=== PATIENT | female | born 2000 | race Caucasian/White ===

== ENCOUNTER 2020-03-09 05:23 | Emergency (ER) | payer OTHER ==
[~2020-03-09] VITALS: Ht 162.5 cm; Wt 57.1 kg
[2020-03-09] MEDS ORDERED: FLUORESCEIN (FLUOR-I-STRIPS) 1 MG STRP OU ONE (06:30)
[2020-03-09] MEDS ORDERED: TETRACAINE 0.5% OPHTH SOLN 4 ML BTL (SINGLE DOSE ONLY) OU ONE (06:30)
[2020-03-09] MEDS ORDERED: BSS 15 ML IR ONE (06:30)
--- NOTE | 2020-03-09 06:52 | ED EENT ---
History of Present Illness General Chief Complaint: Eye Problems Stated Complaint: LEFT EYE PAIN,EYE ARE UNEQUALLY DIALATED Nursing Triage Note: C/O LEFT EYE PAIN WITH LIGHT SENSITIVITY STARTED ON 02/29/20 AROUND 1800 HAS BEEN IRRITATED THE LAST FEW DAYS, VERBALIZES THE PUPIL IS BIGGER ON THE RIGHT . (SHAYY MERCER STUDENT) Source: patient Exam Limitations: no limitations (LOUIS MAIER MD) History of Present Illness Initial Comments This is a 19 year old female who presents to the Emergency Department via ambulation for a chief complaint of anisocoria and left eye pain that started 3 days ago but became worse last night. She has constant dull left eye pain, light sensitivity, eye irritation and blurry vision. She also has a runny nose and teary vision. She denies fever, chills, nausea, or vomiting. Changing from light to dark or opening her eyes from closed makes it worse. Keeping her eyes closed makes it better. She wears contacts and states it used to be better when they were out but not anymore. She has an eye appointment later today. Medication: control allergy to meds: none PMHx: none PSHx: excess gum tissue removed from mouth FamHx: none SocHx: no smoking, no alcohol, no drugs (SHAYY MERCER STUDENT) Date Seen by Provider: Mar 09, 2020 Time Seen by Provider: 06:10 (LOUIS MAIER MD) Allergies and Home Medications Allergies Coded Allergies: No Known Drug Allergies (Unverified , 03/09/20) Patient Home Medication List Home Medication List Reviewed: Yes (LOUIS MAIER MD) Review of Systems Review of Systems Constitutional: no symptoms reported; No dizziness, No fever Eyes: Blurred Vision, Pain, Photophobia; Denies Previous Injury, Denies Tunnel Vision; Vision Changes, Contact Lenses Ears: No Symptoms Reported; Denies Pain, Denies Tinnitus Nose: other (runny nose) Mouth: no symptoms reported Throat: no symptoms reported Respiratory: no symptoms reported; No cough Cardiovascular: no symptoms reported; No chest pain Gastrointestinal: no symptoms reported Musculoskeletal: no symptoms reported Skin: no symptoms reported Neurological: No Symptoms Reported Hematologic/Lymphatic: No Symptoms Reported Immunological/Allergic: no symptoms reported (SHAYY MERCER STUDENT) Past Ajslzvw-Nkobsi-Himgga Hx Patient Social History Alcohol Use: Denies Use Recent Infectious Disease Expo: No Recent Hopitalizations: No (SHAYY MERCER STUDENT) Immunizations Up To Date PED Vaccines UTD: Yes Date of Influenza Vaccine: Dec 09, 2019 (SHAYY MERCER STUDENT) Past Medical History Respiratory: No Cardiac: No Neurological: No Last Menstrual Period: Mar 08, 2020 Genitourinary: No Gastrointestinal: No Musculoskeletal: No Endocrine: No HEENT: No Cancer: No Psychosocial: No Integumentary: No Blood Disorders: No (SHAYY MERCER STUDENT) Visual Acuity : Eye Location: Left (SHAYY MERCER [employer] STUDENT) Physical Exam Vital Signs Vital Signs - First Documented 03/09/20 06:00 Temp 37.0 Pulse 94 Resp 16 B/P (MAP) 122/94 (103) Pulse Ox 98 (LOUIS MAIER MD) Height, Weight, BMI Height: '" Weight: lbs. oz. kg; 21.00 BMI Method: General Appearance: WD/WN, no apparent distress Eyes: left eye abnormal pupil (anisocoria), left eye conjunctival inflammation (red, irritated), left eye corneal abrasion (possible); bilateral eye EOMI, bilateral eye vision changes (blurry vision) Cardiovascular: regular rate, rhythm Respiratory: chest non-tender, lungs clear, normal breath sounds, no respiratory distress, no accessory muscle use Neurologic/Psychiatric: alert Skin: normal color, warm/dry (SHAYY MERCER STUDENT) Procedures/Interventions Eye : Location: left eye Anesthesia (gtts): Tetracaine Intraocular Pressure: (L) eye (MM), Per Tonopen Progress/Procedure Conclusion - The patient's left eye was anesthetized with tetracaine eye drops and fluorescein stain was then applied. This did not alleviate her pain. Upon visualization with the Wood's lamp, the patient did have uptake for a positive corneal abrasion. A small ulcer/defect was seen at 12 o'clock on the cornea. Upon further exam, there were no foreign bodies within the patient's left eye. There was conjunctival irritation. Intraocular pressure was 18 in the left eye. (SHAYY MERCER [employer] STUDENT) Progress/Results/Core Measures Results/Orders My Orders Orders - LOUIS MAIER MD Tetracaine 0.5% Ophth Stephanie Sdv (Tetracai (03/09/20 06:30) Fluorescein Strips (Tecfi-L-Ghrmha) (03/09/20 06:30) Balanced Salt Irrigation Soln (Bss Irrig (03/09/20 06:30) Trimethoprim/Polymyx Ophth Stephanie (Polytrim (03/09/20 07:00) (LOUIS MAIER MD) Medications Given in ED Current Medications Medications Dose Ordered Sig/Josi Route Start Time Stop Time Status Last Admin Dose Admin Balanced Salt Solution 15 ml ONCE ONCE IR 03/09/20 06:30 03/09/20 06:31 DC 03/09/20 06:34 15 ML Fluorescein Sodium 1 mg ONCE ONCE OU 03/09/20 06:30 03/09/20 06:31 DC 03/09/20 06:34 1 MG Tetracaine HCl 4 ml ONCE ONCE OU 03/09/20 06:30 03/09/20 06:31 DC 03/09/20 06:34 4 ML (LOUIS MAIER MD) Vital Signs/I&O 03/09/20 06:00 Temp 37.0 Pulse 94 Resp 16 B/P (MAP) 122/94 (103) Pulse Ox 98 (LOUIS MAIER MD) Blood Pressure Mean: 103 Departure Impression Primary Impression: Iritis Additional Impressions: Corneal ulceration Qualified Codes: H16.002 - Unspecified corneal ulcer, left eye Conjunctivitis Qualified Codes: H10.32 - Unspecified acute conjunctivitis, left eye Disposition: 01 HOME, SELF-CARE Condition: Improved Departure-Patient Inst. Decision time for Depature: 07:07 (LOUIS MAIER MD) Referrals: MARIELLE FLOREZ OD, SHANE R OD NO,LOCAL PHYSICIAN (PCP) Primary Care Physician Patient Instructions: Corneal Ulcer Add. Discharge Instructions: Present to [facility] at 8:[address] Felix or Dr. Howell will see you this morning. Until then do not wear your contacts. Bring your antibiotic drops with you and use according to their instructions. Protect your eyes with sunglasses. It would be best if you not attempt to drive yourself to the eye doctor. Tylenol and/or ibuprofen may be helpful in reducing pain. Call the clinic at the number below with any questions or concerns. If you have questions or concerns prior to the office opening, please call Dr. Maier in the ER. All discharge instructions reviewed with patient and/or family. Voiced understanding. Medical Student Attestation and Attending Note: I have personally interviewed and examined this patient along with Shayy Mercer, MS 3. I have reviewed student documentation including history, physical, and assessments. I agree with the documentation except where otherwise noted. Exam: General: Alert, oriented, mild distress, well developed HEENT: Normocephalic. Gross examination of the eye reveals conjunctival inflammation and slight anisocoria with a constricted left pupil. Fluorescein exam reveals a tiny ulceration or abrasion on the periphery of the cornea at about the 12 o'clock position. No foreign bodies were identified. Extraocular movements intact. Left rhinorrhea. Tympanic membranes normal. Lungs: normal effort Neuropsych: Alert, oriented, no focal deficits, extraocular movements intact, left vision intact about generally blurry. No visual field deficits. Skin: Warm and dry without rashes. Mild erythema and mild edema of the eyelids and periorbital region on the left Patient had iritis with rather significant light sensitivity. There was an ulceration suspected on the peripheral superior aspect of the cornea, likely related to contact lens use. Patient should have a dedicated eye exam by an automotive service professional. I discussed the situation with Dr. Florez who asked the patient to present at the [facility] clinic at 08:00. He recommended initial treatment with Polytrim drops. He requested cycloplegic medications not be administered until she is seen in the clinic. Discharge instructions were reviewed with the patient prior to discharge. (LOUIS MAIER MD) Copy Copies To 1: SOL FELIX OD, ELIZABETH X MED STUDENT Mar 09, 2020 06:52 LOUIS MAIER MD Mar 09, 2020 07:11
[2020-03-09] MEDS ORDERED: POLY/TRIMETH (POLYTRIM) OPHTH 10 ML BTL OU ONE (07:00)
[2020-03-09 07:15] VITALS: BP 122/94
== END 2020-03-09 07:15 | disposition home or self-care (01) ==
LOC: ER 05:33
DX: H20.9 Unspecified iridocyclitis (principal); H16.002 Unspecified corneal ulcer, left eye; H10.9 Unspecified conjunctivitis
CPT/HCPCS: 99282

== ENCOUNTER 2021-04-03 23:02 | Emergency (ER) | payer OTHER ==
--- NOTE | 2021-04-03 23:14 | ED Psychosocial ---
General Chief Complaint: Psych/Social Disorder Stated Complaint: ANXIETY ATTACK Source: patient Exam Limitations: no limitations History of Present Illness Date Seen by Provider: Apr 03, 2021 Time Seen by Provider: 23:00 Initial Comments Corrine is a 21-year-old female who was brought to the emergency department by ambulance this evening chief complaint panic attack. She was at a local bar watching the [employer] tonight with friends, drinking mixed drinks. They went to [facility] afterwards, she became very nauseated went into the bathroom and states that she could not stop throwing up. Patient continued to become more short of breath and panicky. She is not very forthcoming with other circumstances. She is very tearful. She is not making good eye contact. She denies pain. She states she still having nausea. Her last menstrual cycle was last week. She states she is not currently sexually active. No recent illnesses. No other complaints of injury. She has never had a panic attack before. All other review of systems reviewed and negative except as stated. Timing/Duration: just prior to arrival Severity: severe Associated Symptoms: anxiety Allergies and Home Medications Allergies Coded Allergies: No Known Drug Allergies (Unverified , 03/09/20) Patient Home Medication List Home Medication List Reviewed: Yes Review of Systems Constitutional: see HPI EENTM: no symptoms reported Respiratory: short of breath Cardiovascular: no symptoms reported Gastrointestinal: nausea, vomiting Genitourinary: no symptoms reported : No LMP: Mar 27, 2021 Musculoskeletal: no symptoms reported Skin: no symptoms reported Psychiatric/Neurological: Anxiety All Other Systems Reviewed Negative Unless Noted: Yes Past Zpilxqq-Ookomu-Wwklui Hx Immunizations Up To Date PED Vaccines UTD: Yes Past Medical History Respiratory: No Cardiac: No Neurological: No Genitourinary: No Gastrointestinal: No Musculoskeletal: No Endocrine: No HEENT: No Cancer: No Psychosocial: No Integumentary: No Blood Disorders: No Physical Exam Capillary Refill : Height, Weight, BMI Height: '" Weight: lbs. oz. kg; 21.00 BMI Method: General Appearance: WD/WN, moderate distress HEENT: PERRL/EOMI, other (Swollen red eyelids bilaterally, injected conjunctive a) Neck: normal inspection Respiratory: lungs clear, normal breath sounds, no respiratory distress, no accessory muscle use Cardiovascular: regular rate, rhythm (116) Gastrointestinal: normal bowel sounds, non tender, soft Extremities: normal range of motion, non-tender, normal inspection, no pedal edema Neurologic/Psychiatric: alert, oriented x 3, other (Anxious tearful, crying) Appearance/Memory: appropriate appearance, no memory impairment Behavior/Eye Contact: avoids eye contact Skin: normal color, warm/dry Progress/Results/Core Measures Results/Orders My Orders Orders - TAMIKA KEE MD Ns Iv 1000 Ml (Sodium Chloride 0.9%) (04/03/21 23:15) Ondansetron Injection (Zofran Injectio (04/03/21 23:15) Medications Given in ED Current Medications Medications Dose Ordered Sig/Josi Route Start Time Stop Time Status Last Admin Dose Admin Ondansetron HCl 8 mg ONCE ONCE IVP 04/03/21 23:15 04/03/21 23:16 DC 04/03/21: 8 MG Progress Progress Note : Time: 00:27 Progress Note Patient reassessed, sleeping soundly, looks a little pale. Vital signs have improved. She is arousable to sternal rub with a little bit of a grimace and a whimper. We will get her up and around and have her drink a little bit of water. She was able to nod to me that she feels ready to go home and improved. Further history from the friend who was with her out at the bar [facility], she went into the bathroom and started vomiting. Friend found her on the floor, somnolent not really responding. She is a nurse and was able to get her awake, she called her mom and when Corrine talked to her mom she became much more hysterical and the panic attack intensified. Corrine denied any assault. No significant recent increased stressors. I am suspicious that the alcohol on board [facility] contributed greatly to this event. Departure Impression Primary Impression: Panic attack Additional Impression: Alcohol intoxication Qualified Codes: F10.920 - Alcohol use, unspecified with intoxication, uncomplicated Disposition: 01 HOME, SELF-CARE Condition: Stable Departure-Patient Inst. Decision time for Depature: 00:28 Referrals: [facility] NO,LOCAL PHYSICIAN (PCP) Primary Care Physician Patient Instructions: Panic Attack ED Add. Discharge Instructions: You will need to follow-up with a primary care provider. Drink lots of fluids tomorrow to rehydrate. Krbo-col-mwmzqqh ibuprofen, 3 tablets which is 600 mg every 6-8 hours with food as needed for pain. Return to the emergency room for any new, concerning or emergent complaints. TAMIKA KEE MD Apr 03, 2021 23:14
[2021-04-03] MEDS ORDERED: ONDANSETRON 4 MG/2 ML (SDV) Z0FRAN IVP ONE (23:15)
[2021-04-03] MEDS ORDERED: NS IV 1000 ML 1,000 ML IV SCH (23:15)
[2021-04-04 00:34] VITALS: BP 103/59
== END 2021-04-04 00:34 | disposition home or self-care (01) ==
LOC: EDUNIT# 23:02 → ER 23:03
DX: F41.0 Panic disorder [episodic paroxysmal anxiety] (principal); F10.129 Alcohol abuse with intoxication, unspecified

== ENCOUNTER 2021-06-30 00:16 | Emergency (ER) | payer OTHER ==
[~2021-06-30] VITALS: Ht 162.5 cm; Wt 70.3 kg
[2021-06-30 00:27] VITALS: BP 143/88
[2021-06-30] MEDS ORDERED: HYDROcodone/APAP 5 MG/325 MG (LORTAB) TAB PO ONE (00:30)
--- NOTE | 2021-06-30 00:30 | ED Lower Extremity ---
General Chief Complaint: Lower Extremity Stated Complaint: LEFT ANKLE PAIN Source: patient Exam Limitations: no limitations History of Present Illness Date Seen by Provider: June 30, 2021 Time Seen by Provider: 00:17 Initial Comments Patient is a 21-year-old female who presents to the emergency room with a chief complaint of left ankle pain. She was wrestling with her boyfriend and fell down and he landed on her ankle. She had immediate pain, was unable to bear weight. No complaints of knee pain or any other injury anywhere else. All other review of systems reviewed and negative except as stated. Onset: just prior to arrival (within the last 30 minutes) Severity: severe Pain/Injury Location: left ankle Method of Injury: fell (and boyfriend fell on her ankle) Modifying Factors: Worse With Movement Allergies and Home Medications Allergies Coded Allergies: No Known Drug Allergies (Unverified , 03/09/20) Patient Home Medication List Home Medication List Reviewed: Yes Review of Systems Constitutional: see HPI EENTM: no symptoms reported Respiratory: no symptoms reported Cardiovascular: no symptoms reported Gastrointestinal: no symptoms reported Genitourinary: no symptoms reported Musculoskeletal: joint pain (left ankle) Skin: no symptoms reported Psychiatric/Neurological: Anxiety All Other Systems Reviewed Negative Unless Noted: Yes Past Fqjibiz-Ystqoo-Kbilbf Hx Immunizations Up To Date PED Vaccines UTD: Yes Past Medical History Respiratory: No Cardiac: No Neurological: No Genitourinary: No Gastrointestinal: No Musculoskeletal: No Endocrine: No HEENT: No Cancer: No Psychosocial: No Integumentary: No Blood Disorders: No Physical Exam Vital Signs Vital Signs - First Documented 06/30/21 00:27 Temp 35.0 Pulse 134 Resp 18 B/P (MAP) 143/88 (106) Pulse Ox 96 O2 Delivery Room Air Capillary Refill : Height, Weight, BMI Height: '" Weight: lbs. oz. kg; 21.00 BMI Method: General Appearance: WD/WN, mild distress (tearful) Neck: normal inspection Cardiovascular: regular rate, rhythm, tachycardia Respiratory: lungs clear, normal breath sounds, no respiratory distress, no accessory muscle use Hips: bilateral hip non-tender, bilateral hip normal inspection, bilateral hip normal range of motion, bilateral hip no evidence of injury Legs: bilateral leg non-tender, bilateral leg normal inspection, bilateral leg normal range of motion, bilateral leg no evidence of injury Knees: bilateral knee non-tender, bilateral knee normal inspection, bilateral knee normal range of motion, bilateral knee no evidence of injury Ankles: left ankle bone tenderness (medial), left ankle limited range of motion, left ankle pain, left ankle soft tissue tenderness, left ankle swelling Feet: bilateral foot non-tender, bilateral foot normal inspection, bilateral foot normal range of motion, bilateral foot no evidence of injury Neurologic/Psychiatric: no motor/sensory deficits, alert, normal mood/affect, oriented x 3, other (tearful and anxious) Skin: normal color, warm/dry Progress/Results/Core Measures Results/Orders My Orders Orders - TAMIKA KEE MD Ankle, Left, 3 Views (06/30/21 00:25) Hydrocodone/Apap 5/325 Tablet (Lortab 5 (06/30/21 00:30) Medications Given in ED Current Medications Medications Dose Ordered Sig/Josi Route Start Time Stop Time Status Last Admin Dose Admin Acetaminophen/ Hydrocodone Bitart 1 ea ONCE ONCE PO 06/30/21 00:30 06/30/21 00:31 DC 06/30/21 00:30 1 EA Vital Signs/I&O 06/30/21 00:27 Temp 35.0 Pulse 134 Resp 18 B/P (MAP) 143/88 (106) Pulse Ox 96 O2 Delivery Room Air Diagnostic Imaging Diagonstic Imaging: Xray Comments Left ankle x-rays, bimalleolar, nondisplaced fracture - interpreted by me Departure Impression Primary Impression: Closed bimalleolar fracture of left ankle Qualified Codes: S82.842A - Displaced bimalleolar fracture of left lower leg, initial encounter for closed fracture Disposition: 01 HOME, SELF-CARE Condition: Stable Departure-Patient Inst. Decision time for Depature: 00:53 Referrals: NO,LOCAL PHYSICIAN (PCP) Primary Care Physician CHACHA SHEN MD Patient Instructions: Ankle Fracture Add. Discharge Instructions: Keep the splint in place until you follow-up with orthopedics. Please call tomorrow to arrange a follow-up appointment. You can take the prescribed pain medications every 6 hours as needed for severe pain. Otherwise you can take vjnu-hnz-fwujmkd ibuprofen, 3 tablets which is 600 mg every 6 hours as needed with food for pain. Keep it elevated above the level of your heart as best as possible. Keep an ice pack on it for 20 minutes at a time several times daily for the next couple of days. When you walk with crutches you can put your toe down for balance but do not put any weight on the left ankle. You may loosen the Da wrap for discomfort in your toes but do not remove the splint until you see the orthopedic doctor. Transfer back to the emergency department for any new, concerning or emergent complaints. Scripts Hydrocodone/Acetaminophen (Hydrocodone-Acetamin 5-325 mg) 5 Mg-325 Mg Tablet 1 TAB PO Q6H PRN for PAIN-MODERATE (5-7), #20 TAB Prov: TAMIKA KEE MD 06/30/21 Copy Copies To 1: CHACHA SHEN MD, KATHRYN M MD June 30, 2021 00:29
[2021-06-30] MEDS ORDERED: ACHD5005 PO (00:55)
--- NOTE | 2021-06-30 07:19 | Diagnostic Imaging Report ---
INDICATION: Fall with left ankle pain AP, oblique, and lateral views of the left ankle are obtained. There is a faint linear lucency in the distal tibia involving the medial malleolus, with vertical orientation. There is also a faint linear lucency with horizontal orientation in the distal fibula. These findings are suspicious for nondisplaced fractures. Ankle joint appears in good alignment. There is no other bony abnormality seen. IMPRESSION: Findings suspicious for nondisplaced fractures of the distal tibia and fibula. Follow-up is recommended. Dictated by: Dictated on workstation # [id number]
== END 2021-06-30 01:16 | disposition home or self-care (01) ==
LOC: EDUNIT# 00:16 → ER 00:19
DX: S82.842A Displaced bimalleolar fracture of left lower leg, initial encounter for closed fracture (principal); W03.XXXA Other fall on same level due to collision with another person, initial encounter; Y93.72 Activity, wrestling
CPT/HCPCS: 29515; 73610